=== PATIENT | female | born 1995 | race Hispanic/Latino ===

== ENCOUNTER 2020-11-22 19:38 | Emergency (ER) | payer MEDICAID, SELFPAY ==
[2020-11-22 19:50] VITALS: BP 108/57; PULSE 84; RESP 16; TEMP 36.5; O2SAT 100
[2020-11-22] MEDS: SODIUM CHLORIDE 0.9% IV 1,000 ML 999 ML IV CONT (22:04)
[2020-11-22] MEDS: ACETAMINOPHEN 500 MG TABLET 1000 MG PO (22:04)
[2020-11-22 22:35] VITALS: BP 108/70; PULSE 81
[2020-11-22 22:36] VITALS: BP 106/65; PULSE 84
[2020-11-22 22:37] VITALS: BP 110/61; PULSE 78
--- NOTE | 2020-11-22 22:50 | ED.HA ---
HPI - Headache General Chief Complaint: Headache Stated Complaint: headache/ Time Seen by Provider: 11/22/20 21:03 History of Present Illness HPI Narrative: Patient is a 25-year-old female who is 18 weeks that presents ER with headache and lightheadedness. Symptoms began around 11 AM today. States she felt lightheaded like she might pass out. No vertiginous dizziness. No nausea or vomiting or sweats. Reports she has been having throbbing bitemporal headache since then. Feels like she has some discomfort over her sinus but has no sinus congestion or sore throat or productive cough. Denies fevers or chills or sweats. Tried taking some Tylenol earlier in the day. Denies urinary symptoms. Is following with an [employer] [place]. Related Data Home Medications Medication Instructions Recorded Confirmed No Home Medications 11/22/20 11/22/20 Allergies Allergy/AdvReac Type Severity Reaction Status Date / Time No Known Allergies Allergy Verified 11/22/20 20:01 Review of Systems Review of Systems: All systems reviewed & are unremarkable except as noted in HPI and below Constitutional: Constitutional: Denies chills, Denies fever(s) and Denies weakness ENT: Denies nasal congestion and Denies sore throat Cardiovascular: Cardiovascular: Denies chest pain, Denies rapid heart rate and Denies radiating jaw, neck or arm pain Respiratory: Respiratory: Denies cough and Denies dyspnea Gastrointestinal: Gastrointestinal: Denies abdominal pain, Denies diarrhea, Denies nausea and Denies vomiting Genitourinary: Genitourinary: Denies abnormal vaginal bleeding, Reports nocturia, Denies dysuria and Denies vaginal discharge Neurologic: Reports dizziness, Reports headache(s), Denies focal weakness and Denies numbness PMFSH Past Medical History Medical History (Updated 11/23/20 @ 00:21 by Italo Briceño MD) Healthy female adult Surgical History Surgical History (Updated 11/22/20 @ 22:51 by Italo Briceño MD) No history of previous surgery Social History Social History (Updated 11/22/20 @ 22:51 by Italo Briceño MD) Smoking status: Never smoker Exam Narrative: GENERAL: Well-appearing, well-nourished, and in no acute distress. HEAD: Normocephalic, atraumatic. ENT: Mucous membranes moist. TMs normal bilaterally. Normal-appearing posterior oropharynx. NECK: Supple. CHEST: Clear to auscultation. No respiratory distress. HEART: Regular rate and rhythm. Normal peripheral pulses. ABDOMEN: Soft, nontender, nondistended. EXTREMITIES: Normal range of motion. No edema. SKIN: Warm, dry, no rash. NEURO: Alert and oriented x3. PSYCH: Normal mood and affect. Course Course Emergency Course: Unremarkable evaluation. Patient hydrated and given Tylenol. Orthostatics negative. Headache improved. Discharge home. Vital Signs Vital signs: Vital Signs Temperature 97.7 F 11/22/20 19:50 Pulse Rate 84 11/22/20 19:50 Respiratory Rate 16 11/22/20 19:50 Blood Pressure 108/57 L 11/22/20 19:50 Pulse Oximetry 100 11/22/20 19:50 Temperature 97.7 F 11/22/20 19:50 Pulse Rate 78 11/22/20 22:37 Respiratory Rate 16 11/22/20 19:50 Blood Pressure 110/61 11/22/20 22:37 Pulse Oximetry 100 11/22/20 19:50 MDM - Headache Lab Data Labs: Lab Results 11/22/20 Range/Units 23:25 Urine Color Colorless (Yellow) Urine Appearance Clear (Clear) Urine pH 7.0 (5.0-9.0) Ur Specific [place] 1.004 (1.001-1.035) Urine Protein Negative (Negative) mg/dL Urine Glucose (UA) Negative (Negative) mg/dL Urine Ketones Negative (Negative) mg/dL Ur Blood (Man) 1+ H (Negative) Urine Nitrate Negative (Negative) Urine Bilirubin Negative (Negative) Urine Urobilinogen Negative (<2.0) mg/dL Leukocyte Esterase Rfl Negative (Negative) KIRSTY/UL Urine RBC 0-2 (0-2) /hpf Urine WBC 0-3 /hpf Ur Squamous Epith Cells Rare (Few) /hpf Urine Bacteria Tra
[2020-11-22 23:00] VITALS: BP 115/70; PULSE 78; RESP 18; O2SAT 100
[2020-11-22 23:45] LABS: Add Urine Microscopic? YES; Appearance Urine Clear (Clear); Bacteria Urine Trace /hpf; Bilirubin Urine Negative (Negative); Blood Urine 1+ (Negative); Color Urine Colorless (Yellow); Glucose Urine UA Negative (Negative); Ketones Urine Negative (Negative); Leukocyte Esterase Ur Negative LEU/UL (Negative); Mucus Urine Rare /lpf; Nitrate Urine Negative (Negative); Protein Urine Negative (Negative); RBC Urine 0-2 /hpf (0-2); Squamous Epithelial Cell Urine Rare /hpf (Few); Urobilinogen Urine Negative mg/dL (<2.0); WBC Urine 0-3 /hpf
[2020-11-23 00:05] LABS: Specific Grav Ur 1.004 (1.001-1.035)
[2020-11-23 00:29] VITALS: BP 110/60; PULSE 76; RESP 18; O2SAT 100
== END 2020-11-23 00:31 | disposition home or self-care (01) ==
PROVIDERS: Emergency Provider Emergency Medicine
DX: O26.892 Other specified pregnancy related conditions, second trimester (principal); R51.9 Headache, unspecified; Z3A.18 18 weeks gestation of pregnancy
CPT/HCPCS: 81001; 96360; 99283; A9270; J7030

== ENCOUNTER 2021-03-08 12:38 | Observation (INO) | payer BC, SELFPAY ==
[2021-03-08] VITALS (7 sets, daily range): BP systolic 90–122; BP diastolic 52–65; PULSE 86–97
--- NOTE | 2021-03-11 12:28 | PM.OBTRLD ---
OB - Triage/Final Diagnosis Visit Information Comments/Additional reasons for admission: I have assessed the risk for this patient, Kayli Ruiz, and determined that she would benefit from observation care. Final Diagnosis (1) contractions: Code(s): O47.00 - False labor before 37 completed weeks of gestation, unspecified trimester Status: Acute
== END 2021-03-08 14:55 | disposition home or self-care (01) ==
PROVIDERS: Admitting Provider Obstetrics & Gynecology; Visit Provider Obstetrics & Gynecology
DX: O47.03 False labor before 37 completed weeks of gestation, third trimester (principal); Z3A.00 Weeks of gestation of pregnancy not specified
CPT/HCPCS: 84112; G0378; G0379